=== PATIENT | female | born 1940 | race African-American/Black ===

== ENCOUNTER 2023-10-14 13:59 | Emergency (ER) | payer MEDICARE, BC, SELFPAY ==
--- NOTE | ~2023-10-14 | XR_ITS ---
EXAMINATION: XR CHEST CLINICAL INFORMATION: Shortness of breath COMPARISON: None available. TECHNIQUE: 2 views of the chest were obtained. FINDINGS: The lungs are hyperinflated but clear. Heart size and pulmonary vascularity is normal. No gross bony abnormality seen. XR/XR chest 2V IMPRESSION: Unremarkable chest exam.
[2023-10-14 14:09] VITALS: BP 147/74; PULSE 71; RESP 20; TEMP 36.5; O2SAT 97; BMI 22.5
--- NOTE | 2023-10-14 14:09 | ED_ITS ---
HPI - SOB/Dyspnea General Chief Complaint: Dyspnea Stated Complaint: difficulty breathing Time Seen by Provider: 10/14/23 15:53 Source: patient and family Mode of arrival: ambulatory Limitations: no limitations History of Present Illness HPI Narrative: Patient is an 82-year-old female with history of COPD presenting to the emergency department with increasing shortness of breath over the past few days, worsening even more so yesterday. Also reports nonproductive cough. Denies fevers. Denies chest pain or palpitations. Denies abdominal pain, nausea, vomiting, diarrhea or constipation. Denies sick contacts. Denies lower extremity swelling. MD elicited complaint: shortness of breath and cough Pertinent past history: COPD Onset (ago): day(s) Timing: progressively worsening Known history of: COPD Associated symptoms: cough Treatment prior to arrival: none Related Data Previous Rx's ?Medication ?Instructions ?Recorded azithromycin 250 mg tablet See Rx Instructions PO .COMPLEX #6 10/14/23 tabs prednisone 20 mg tablet 40 mg (2 x 20 mg) PO DAILY #10 tabs 10/14/23 Allergies Allergy/AdvReac Type Severity Reaction Status Date / Time No Known Allergies Allergy Verified 10/14/23 14:12 Review of Systems 2 Review of Systems: As per HPI. Yes all other systems are reviewed and are negative Constitutional: Constitutional: Reports as per HPI [facility] Social History Social History Advance Directives: No Advance Directives Information Provided: No Physical Exam 2 Vital Signs: Vital Signs: Last Vital Signs Temp 97.7 F 10/14/23 14:09 Pulse 72 10/14/23 18:05 Resp 17 10/14/23 18:05 BP 175/76 H 10/14/23 18:05 Pulse Ox 94 10/14/23 18:22 O2 Del Method Room Air 10/14/23 18:22 BMI result Body Mass Index 22.5 Vital signs have been reviewed and appear to be correct. Blood pressure mildly elevated. Heart rate normal. Respiratory rate normal. Temperature normal. Oxygen saturation normal. Const: General: cooperative and no acute distress O rientation/consciousness: oriented to person, oriented to place, oriented to time and patient oriented x3 Limitations: no limitations HEENT: Head: Yes normocephalic and Yes atraumatic Ears: external ears normal General nose exam: Normal external nose present Face and sinus: Yes face symmetric Mouth: oropharynx normal and moist mucous membranes Throat: Yes uvula midline Eyes: Pupils: Equal, round and reactive pupils present Neck: Neck: Yes normal visual inspection and Yes supple Resp: Effort & Inspection: normal respiratory effort and able to speak in complete sentences Auscultation: diminished lung sounds diffuse Cardio: Rate: regular rate Rhythm: regular rhythm Heart sounds: S1 normal heart sound present and S2 normal heart sound present GI: Palpation (GI): Soft to palpation and nontender Auscultation: n ormoactive bowel sounds : General: Yes no CVA tenderness Back/Spine/Pelvis: Back: no CVA tenderness Skin: General skin exam: elasticity normal and turgor normal Neuro: General: oriented to person, oriented to place, oriented to time, patient oriented x3, moves all extremities, no focal motor deficits and CN's II- XI intact bilaterally Cranial nerves: Yes Equal, round and reactive pupils present Cognition (Neuro): normal cognition Extrem: General: Yes full ROM, Yes no pedal edema and Yes no calf tenderness Psych: Mental Status: mental status grossly normal Affect: normal affect Thought process: Normal thought process present Course Course Course Narrative: This is an RME performed by Dallin Gray CNP: Additional HPI, ROS, PE not included below will be deferred to primary provider. Patient is an 82-year-old female who presents emergency department for evaluation of difficulty breathing with onset yesterday. Has a history of COPD, feels like a COPD exacerbation. Denies fevers, chills, known sick contacts. Has not had any relief from her routine inhalers. PE: no increased WOB, LS vert tight, faint exp wheexing, prolonged expiration, diminished at bases Plan: Labs, XR, EKG, viral panel Medications Administered Discontinued Medications Generic Name Dose Route Start Last Admin Trade Name Freq PRN Reason Stop Dose Admin Albuterol/Ipratropium 3 ml 10/14/23 16:16 10/14/23 16:19 Albuterol/Iprat 2.5/0.5mg 3 Ml Ampul.Neb INHALE 10/14/23 16:17 3 ml ONCE ONE Administration Methylprednisolone Sodium Succinate 60 mg 10/14/23 15:10 10/14/23 15:59 Methylprednisolone Sod Succ 125 Mg/2 Ml Vial IVPUSH 10/14/23 15:11 60 mg ONCE ONE Administration Medical Decision Making Medical Decision Making MDM Narrative: Patient is an 82-year-old female with history of COPD presenting to the emergency department with increasing shortness of breath over the past few days, worsening even more so yesterday. On exam patient is awake, A+Ox3, VS WNL, afebrile, normal neurological exam without focal deficits, physical exam findings as above. Given reported symptoms and physical exam findings, initial differential includes COPD exacerbation, viral illness, bronchitis, pneumonia. Do not suspect sepsis at 16:45. Labs notable for slight leukocytosis, otherwise unremarkable. Viral serology negative. X-ray chest notable for no evidence of pneumonia. My interpretation is in agreement with the radiologist's interpretation. Patient maintaining oxygen saturation of 97-98% on room air. Able to maintain oxygen saturation upon ambulation as well. Feel patient is stable for discharge home with course of prednisone, azithromycin. Instructed patient to follow-up with her primary care provider. Return precautions discussed at bedside. Patient and family verbalized understanding of and agreement with plan. Differential Diagnosis Differential Diagnoses: The differential diagnosis associated with the presentation includes As per MDM. Admission/Observation Consideration of admission/observation: Escalation of care including admission/observation considered Patient would have been admitted to the hospital had their work up had any findings where hospital admission was appropriate and their clinical presentation warranted hospital admission. Lab Data [facility] Lab Attestation statement: I reviewed the patient's lab results. As per MDM. 10/14/23 16:23 10/14/23 14:52 Labs: Lab Results 10/14/23 10/14/23 10/14/23 Range/Units 14:40 14:52 16:23 WBC 13.2 H (4.8-10.8) X10*3/uL RBC 4.85 (4.20-5.50) X10*6/uL Hgb 12.5 (12.0-16.0) g/dl Hct 39.2 (37.0-47.0) % MCV 80.8 (80.0-98.0) fL MCH 25.8 L (27.0-33.0) pg MCHC 31.9 (31.0-35.0) g/dl RDW 15.7 (11.0-16.0) % Plt Count 271 (160-400) X10*3/uL MPV 9.2 L (9.4-12.3) fL Immature Gran % (Auto) 0.3 (0.0-0.4) % Neut % (Auto) 50.8 (45-73) % Lymph % (Auto) 40.1 H (20-40) % [place] % (Auto) 7.9 (2-11) % Eos % (Auto) 0.5 (0-4) % Baso % (Auto) 0.4 (0-2) % Lymph # (Auto) 5.3 H (1.2-4.9) X10*3/uL [place] # (Auto) 1.0 (0.1-1.2) X10*3/uL Eos # (Auto) 0.1 (0.0-0.4) X10*3/uL Baso # (Auto) 0.1 (0.0-0.2) X10*3/uL Abs Immat Gran (auto) 0.04 H (0.00-0.03) X10*3/uL Absolute Neuts (auto) 6.7 (2.0-8.3) x10*3/uL Absolute Nucleated RBC 0.000 (0.0-0.012) X10*3/uL Nucleated RBC % (auto) 0.0 (0.0-0.2) /100WBC Smear Tech's Comments VERIFIED PT 11.9 (11.1-13.3) SEC INR 1.0 (0.9-1.1) Sodium 139 (135-145) mmol/L Potassium 3.6 (3.3-5.1) mmol/L Chloride 104 (96-108) mmol/L Carbon Dioxide 22 (22-29) mmol/L Anion Gap 17 (12-20) BUN 9 (9-16) mg/dL Creatinine 0.57 (0.5-1.4) mg/dL Estim Creat Clear Calc 65.1 Estimated GFR > 60 POC Glucose 124 H (60-115) mg/dL Random Glucose 117 H (60-115) mg/dL Calcium 8.9 (8.4-10.2) mg/dL Total Bilirubin 0.6 (0.0-1.0) mg/dL AST 11 (5-31) U/L ALT 7 (0-31) U/L Alkaline Phosphatase 66 (39-117) U/L Troponin I High Sens 2.9 (<3.5-17.0) ng/L B-Natriuretic Peptide 55 (<100) pg/mL Total Protein 6.2 L (6.5-8.0) g/dL Albumin 3.6 (3.5-5.0) g/dL Influenza Type A (PCR) NEGATIVE (Negative) Influenza Type B (PCR) NEGATIVE (Negative) RSV RNA Qual (PCR) NEGATIVE (Negative) SARS-CoV-2 RNA (RT-PCR) NEGATIVE (Negative) Independent Interpretation I performed an independent interpretation of an: Plain X-Ray Interpretation: No evidence of pneumonia on chest x-ray Radiology Impression Discussion of test interpretation with radiology: I have reviewed the radiologist's reading. Radiologist Impression: XR/XR chest 2V IMPRESSION: Unremarkable chest exam. External Record Review External record reviewed: Inpatient record, Office record and Outpatient record Prescription Management I considered prescription management with: Antibiotic and Other Discharge Plan Discharge Clinical Impression: COPD exacerbation Patient Disposition: Home, Self-Care Instructions: COPD (Chronic Obstructive Pulmonary Disease) (DC) Additional Instructions: You were evaluated in the emergency department today for shortness of breath and wheezing. It appears that your symptoms are due to a COPD exacerbation. You are being treated with a course of antibiotics and steroids. Please complete all medications as prescribed. We recommend that you follow-up with your primary care provider within 2 days. Return to the emergency department if you develop increasing shortness of breath or difficulty breathing, chest pain, palpitations, dizziness or lightheadedness, fevers 100.4? F or greater or any other concerning symptoms. Prescriptions: New azithromycin 250 mg tablet See Rx Instructions .ROUTE .COMPLEX Qty: 6 0RF Rx Instructions: For 250 mg dose pack: take 500 mg today (day 1), then 250 mg for 4 days (days 2-5) prednisone 20 mg tablet 40 mg PO DAILY Qty: 10 0RF Print Language: Arabic
--- NOTE | 2023-10-14 14:15 | ECG_ITS ---
Test Reason : SOB Blood Pressure : / mmHG Vent. Rate : 064 BPM Atrial Rate : 064 BPM P-R Int : 186 ms QRS Dur : 068 ms QT Int : 400 ms P-R-T Axes : 057 -08 041 degrees QTc Int : 412 ms Normal sinus rhythm Septal infarct , age undetermined Abnormal ECG No previous ECGs available Referred By: Morenita Gray Electronically Signed By:Darryl De La Cruz
[2023-10-14 15:07] LABS: Prothrombin Time 11.9 SEC (11.1-13.3)
[2023-10-14 15:15] LABS: Glucose, Whole Blood 124 mg/dL (60-115)
[2023-10-14 15:16] LABS: Alanine Aminotransferase 7 U/L (0-31); Albumin Level 3.6 g/dL (3.5-5.0); Alkaline Phosphatase 66 U/L (39-117); Anion Gap 17 (12-20); Aspartate Amino Transferase 11 U/L (5-31); Bilirubin Total 0.6 mg/dL (0.0-1.0); Blood Urea Nitrogen 9 mg/dL (9-16); Calcium 8.9 mg/dL (8.4-10.2); Carbon Dioxide 22 mmol/L (22-29); Chloride 104 mmol/L (96-108); Creatinine Clr Calc Pharmacy 65.1; Estimated Glomerular Filt Rate > 60; Glucose Random 117 mg/dL (60-115); Potassium 3.6 mmol/L (3.3-5.1); Sodium 139 mmol/L (135-145); Total Protein 6.2 g/dL (6.5-8.0)
[2023-10-14 15:23] LABS: Troponin-I High Sensitivity 2.9 ng/L (<3.5-17.0)
[2023-10-14] MEDS: methylPREDNISolone Sod Succ 125 MG/2 ML VIAL 60 MG IVPUSH (15:59)
[2023-10-14] MEDS: Albuterol/Iprat 2.5/0.5MG 3 ML AMPUL.NEB INHALE (16:19)
[2023-10-14 16:21] VITALS: PULSE 66; RESP 18; O2SAT 96
[2023-10-14 16:28] LABS: Basophils Absolute Auto 0.1 X10*3/uL (0.0-0.2); Basophils Percent Auto 0.4 % (0-2); Eosinophils Absolute Auto 0.1 X10*3/uL (0.0-0.4); Eosinophils Percent Auto 0.5 % (0-4); Hematocrit 39.2 % (37.0-47.0); Hemoglobin 12.5 g/dl (12.0-16.0); Imm Gran Abs Auto 0.04 X10*3/uL (0.00-0.03); Imm Gran Pct Auto 0.3 % (0.0-0.4); Lymphocytes Absolute Auto 5.3 X10*3/uL (1.2-4.9); Lymphocytes Percent Auto 40.1 % (20-40); MANUAL DIFF FLAG SCAN; Mean Corpuscular HGB Conc 31.9 g/dl (31.0-35.0); Mean Corpuscular Hemoglobin 25.8 pg (27.0-33.0); Mean Corpuscular Volume 80.8 fL (80.0-98.0); Mean Platelet Volume 9.2 fL (9.4-12.3); Monocytes Percent Auto 7.9 % (2-11); Neutrophils Absolute Auto 6.7 x10*3/uL (2.0-8.3); Neutrophils Percent Auto 50.8 % (45-73); Platelet Count 271 X10*3/uL (160-400); Red Blood Count 4.85 X10*6/uL (4.20-5.50); Red Cell Distribution Width 15.7 % (11.0-16.0); SCAN SMEAR FLAG 1; White Blood Count 13.2 X10*3/uL (4.8-10.8)
[2023-10-14 16:57] LABS: B Type Natriuretic Peptide 55 pg/mL (<100)
[2023-10-14 16:58] LABS: SLIDE REVIEW VERIFIED
[2023-10-14 17:08] LABS: Influenza A PCR NEGATIVE (Negative); Influenza B PCR NEGATIVE (Negative); Resp Syncy Virus RNA Qual PCR NEGATIVE (Negative); SARS COV2 PCR INHOUSE NEGATIVE (Negative)
[2023-10-14 17:10] VITALS: BP 189/85; PULSE 76; RESP 15; O2SAT 98
[2023-10-14 18:05] VITALS: BP 175/76; PULSE 72; RESP 17; O2SAT 96
[2023-10-14 18:22] VITALS: O2SAT 94
[2023-10-14 18:49] VITALS: BP 175/76; PULSE 72; RESP 17; TEMP 36.5; O2SAT 94
== END 2023-10-14 19:01 | disposition home or self-care (01) ==
PROVIDERS: Nurse Practitioner Family; Emergency Provider Internal Medicine; PCP Internal Medicine Rheumatology
DX: J44.1 Chronic obstructive pulmonary disease with (acute) exacerbation (principal); R06.02 Shortness of breath; R05.9 Cough, unspecified; Z03.818 Encounter for observation for suspected exposure to other biological agents ruled out
CPT/HCPCS: 0241U; 36415; 71046; 80053; 82947; 83880; 84484; 85025; 85610; 93005; 94640; 96374; 99284; J2919

== ENCOUNTER → 2023-10-14 14:15 | Outpatient (BNV) | payer MEDICARE, BC, SELFPAY | PROVIDERS: Emergency Provider Internal Medicine; PCP Internal Medicine Rheumatology; Visit Provider Internal Medicine Cardiovascular Disease | DX: R06.02 Shortness of breath (principal) | CPT/HCPCS: 93010 ==